=== PATIENT | male | born 1965 | race Hispanic/Latino ===

== ENCOUNTER 2016-11-29 07:41 | Emergency (ER) | payer BC ==
[2016-11-29 07:41] VITALS: BMI 25.5
[2016-11-29 07:53] VITALS: RESP 18; TEMP 97.3
--- NOTE | 2016-11-29 08:33 | ED PDOC ---
Arrival/HPI - General Chief Complaint: Back Pain Time Seen by Provider: 11/29/16 08:11 - History of Present Illness Narrative History of Present Illness (Text): 50yo male, presents with L. sided neck pain radiating to his LUE. Pt states pain is worst with neck movement and feels like paresthesias/pins and needles sensation. Denies any trauma or injury. patient also complaining of retrosternal chest discomfort described as burning since last night. Patient states this feels like his previous indigestion symptoms which were relieved with tums. States he has no discomfort at this time. No other complaints. Denies exertional cp, denies sob or vargas. No other complaints. Past Medical History - Provider Review Nursing Documentation Reviewed: Yes - Infectious Disease Hx of Infectious Diseases: None - Cardiac Hx Hypertension: Yes - Renal Other/Comment: Kidney CA 10yrs ago. - Hematological/Oncological Hx Cancer: Yes (KIDNEY) - Psychiatric Hx Substance Use: No - Surgical History Hx Appendectomy: Yes Other/Comment: Kidney Family/Social History Family/Social History: Unknown Family HX Smoking Status: Never Smoked Hx Alcohol Use: No Hx Substance Use: No Hx Substance Use Treatment: No Allergies/Home Meds Allergies/Adverse Reactions: Allergies No Known Allergies Allergy (Verified 06/14/13 17:03) Physical Exam - Physical Exam Narrative Physical Exam (Text): 11/29/16 08:47 - Review of Systems Constitutional: Normal. absent: Fatigue, Weight Change, Fevers Eyes: Normal ENT: denies sore throat, denies tristhmus Respiratory: Normal. absent: SOB, Cough, Sputum Cardiovascular: Chest pain absent: Palpitations, Syncope Gastrointestinal: Normal. absent: Abdominal Pain, Diarrhea, Nausea, Vomiting Genitourinary: Normal. absent: Dysuria, Frequency, Hematuria Musculoskeletal: Neck pain, paresthesias. absent: Arthralgias, Back Pain Skin: no rashes, no erythema Neurological: absent: Focal Weakness Endocrine: Normal Hemo/Lymphatic: Normal Psychiatric: No suicidal or homicidal ideations Physical exam Patient appears age appropriate in no distress, speaking full sentences without difficulty - Systems Exam Head: Present: Atraumatic, Normocephalic Pupils: Present: PERRL Extroacular Muscles: Present: EOMI Conjunctiva: Present: Normal Mouth: Present: Moist Mucous Membranes Neck: Present: Normal Range of Motion. No: MIDLINE TENDERNESS Respiratory/Chest: Present: Clear to Auscultation, Good Air Exchange. No: Respiratory Distress, Accessory Muscle Use, Tachypneic Cardiovascular: Present: Regular Rate and Rhythm, Normal S1, S2, Peripheal Pulses Present. No: Murmurs Abdomen: Present: Normal Bowel Sounds. No: Tenderness, Distention, Peritoneal Signs, Rebound, Guarding Back: Present: Normal Inspection. No: Midline Tenderness, Paraspinal Tenderness Upper Extremity: Present: Normal Inspection. LUE with full active and passive ROM, distal neurovasc. fully intact. No: Cyanosis, Edema Lower Extremity: Present: Normal Inspection. No: Edema Neurological: Present: GCS=15, Speech Normal, cranial nerves II through XII fully intact with no cerebellar abnormality, neurosensory fully intact. No focal neurological deficits. Skin: Present: Warm, Dry, Normal Color. No: Rashes Lymphatic: Present: OX3, NI, NC Psychiatric: Present: Alert, Oriented x 3, Normal Insight, Normal Concentration Vital Signs Reviewed: Yes Vital Signs Temp Pulse Resp BP Pulse Ox 11/29/16 07:52 97.3 F L 76 18 141/92 H 96 Temperature: Afebrile Blood Pressure: Hypertensive Pulse: Regular Respiratory Rate: Normal Appearance: Positive for: Well-Appearing Pain Distress: None Mental Status: Positive for: Alert and Oriented X 3 Medical Decision Making ED Course and Treatment: 11/29/16 08:29 Impression: 50yo male with L. neck pain and LUE. Also c/o chest discomfort. No acute findings on PE. pt's HEART score low. cardiac enzymes and an EKG ordered I had a long discussion with patient that our initial evaluation does not shown evidence of a heart attack, people in similar risk category may still have a chance of having a major adverse cardiac event. Patient verbalized understanding that even if these tests are normal, symptoms may still be a warning sign of a future heart attack and it is very important for patient to arrange outpatient cardiology follow up Patient was not agreeable to observation in the emergency room for 2 sets of cardiac enzymes, and asked to be discharged home Observation and further evaluation was offered as inpatient, but patient asked to be discharged home with outpatient follow up instead. Differential Diagnosis included but are not limited to: Paresthesias, chest pain Plan: -- Cardiac enzymes, chest x-ray, EKG. -- Reassess and disposition Prior Visits: Notes and results from previous visits were reviewed. Patient last seen in the ED on Progress Notes: EKG shows NSR at [address]-segment elevations, normal intervals. Interpreted by me. Report Date : 11/29/2016 09:35:57 Procedure: Chest xray Dictator : Ac Henry MD IMPRESSION: No active disease. Report Date : 11/29/2016 11:09:30 PROCEDURE: Thoracic Spine Radiographs. Dictator : Ac Henry MD IMPRESSION: Normal radiographs of the thoracic spine. Report Date : 11/29/2016 11:10:58 PROCEDURE: Cervical Spine Radiographs. Dictator : Ac Henry MD IMPRESSION: No acute findings 11/29/16 11:16 C5-C6, C6-C7 disk space narrowing on pt's c-spine xrays, interpreted by radiologist pt in no distress and denies complaints at this time states he feels comfortable being dc'd home with outpatient f/u again, declined further observation and labs in the ER denies cp/abd pain/sob denies neck pain Had a long and extensive d/w patient about f/u with a machinist supervisor outside for further workup and testing as well as a primary physician. Explained to patient that although his ER w/u did not show any acute abnormalities, patient still needs further testing which may include an echo, stress test, cardiac cath, or others. Pt states he understands to return to the ER right away for new or worsening symptoms or for inability to f/u with PMD or specialist as instructed. Patient states that he fully agrees with and understands discharge instructions. States that he agrees with the plan and disposition. Verbalized and repeated discharge instructions and plan. I have given the patient opportunity to ask any additional questions. - Lab Interpretations Lab Results: 11/29/16 08:50 11/29/16 08:50 Lab Results 11/29/16 08:50: PT 10.8, INR 1.00, APTT 28.2 11/29/16 08:50: WBC 7.8, RBC 4.82, Hgb 14.4, Hct 42.2, MCV 87.6, MCH 29.9, MCHC 34.1, RDW 12.4, Plt Count 200, MPV 10.2, Gran % 63.1, Lymph % (Auto) 27.2, [place] % (Auto) 7.5 H, Eos % (Auto) 1.3 L, Baso % (Auto) 0.9, Gran # 4.89, Lymph # 2.1 , [place] # 0.6, Eos # 0.1, Baso # 0.07 11/29/16 08:50: Sodium 139, Potassium 4.2, Chloride 105, Carbon Dioxide 26, Anion Gap 12, BUN 15, Creatinine 0.9, Est GFR ( Amer) > 60, Est GFR (Non- Af Amer) > 60, Random Glucose 95, Calcium 9.5, Total Bilirubin 0.6, AST 27, ALT 34, Alkaline Phosphatase 84, Lactate Dehydrogenase 416, Total Creatine Kinase 108, Troponin I < 0.01, Total Protein 7.4, Albumin 4.2, Globulin 3.2, Albumin/ Globulin Ratio 1.3 - RAD Interpretation Radiology Orders: 11/29/16 08:34 CHEST PORTABLE [RAD] Stat 11/29/16 09:47 CERVICAL SPINE >18YR W/OBLIQUE [RAD] Stat 11/29/16 10:03 DORSAL (THORACIC) SPINE [RAD] Stat - Medication Orders Current Medication Orders: Discontinued Medications Aspirin (Aspirin Chewable) 324 mg PO STAT STA Stop: 11/29/16 08:34 Last Admin: 11/29/16 08:58 Dose: 324 mg Pantoprazole Sodium (Protonix Inj) 40 mg IVP STAT STA Stop: 11/29/16 08:34 Last Admin: 11/29/16 08:58 Dose: 40 mg Disposition/Present on Arrival - Present on Arrival Any Indicators Present on Arrival: No History of DVT/PE: No History of Uncontrolled Diabetes: No Urinary Catheter: No History of Decub. Ulcer: No History Surgical Site Infection Following: None - Disposition Have Diagnosis and Disposition been Completed?: Yes Diagnosis: Chest pain, Paresthesias Disposition: HOME/ ROUTINE Disposition Time: 11:21 Patient Plan: Discharge Patient Problems: Current Active Problems Problem Status Onset Chest pain Acute Paresthesias Acute Condition: GOOD Discharge Instructions (ExitCare): Chest Pain (ED), Paresthesia (ED) Additional Instructions: PLEASE RETURN TO THE EMERGENCY DEPARTMENT FOR NEW OR WORSENING SYMPTOMS. RETURN RIGHT AWAY IF YOU CANNOT FOLLOW UP WITH YOUR PRIMARY CARE DOCTOR, CLINIC, OR SPECIALIST IN 1-2 DAYS. Referrals: PCP,NO [Primary Care Provider] - Follow up with primary Flo Mendosa MD [Staff Provider] - Follow up with primary Gera Pan MD [Staff Provider] - Follow up with primary Lorne Quiñonez MD [Staff Provider] - Follow up with primary Ruddy Alejo MD [Staff Provider] - Follow up with primary Forms: WORK NOTE
[2016-11-29 09:03] LABS: ADD MANUAL DIFF? NO
[2016-11-29 09:10] LABS: BASO # 0.07 K/mm3 (0.0-2.0); BASO % 0.9 % (0.0-3.0); EOS # 0.1 (0.0-0.7); EOS % 1.3 % (1.5-5.0); GRAN # 4.89 (1.4-6.5); GRAN % 63.1 % (50.0-68.0); HEMATOCRIT 42.2 % (42.0-52.0); LYMPH # 2.1 (1.2-3.4); LYMPH % 27.2 % (22.0-35.0); MEAN CELL VOLUME 87.6 fL (80.0-105.0); MEAN CORPUSCULAR HEMOGLOBIN 29.9 pg (25.0-35.0); MEAN CORPUSCULAR HGB CONC 34.1 g/dl (31.0-37.0); MEAN PLATELET VOLUME 10.2 fl (7.0-11.0); MONO # 0.6 (0.1-0.6); MONO % 7.5 % (1.0-6.0); PLATELET COUNT 200 10^3/uL (120.0-450.0); RED CELL DISTRIBUTION WIDTH 12.4 % (11.5-14.5); WHITE BLOOD COUNT 7.8 10^3/ul (4.5-11.0)
[2016-11-29 09:20] LABS: ALB/GLOB RATIO 1.3 (1.1-1.8); ALKALINE PHOSPHATASE 84 U/L (38-133); ALT/SGPT 34 U/L (7-56); AST/SGOT 27 U/L (15-59); BILIRUBIN,TOTAL 0.6 mg/dL (0.2-1.3); BLOOD UREA NITROGEN 15 mg/dL (7-21); CALCIUM 9.5 mg/dL (8.4-10.5); CARBON DIOXIDE 26 mmol/L (21-33); CHLORIDE 105 mmol/L (98-107); GFR AFRICAN-AMERICAN > 60; GLUCOSE,RANDOM 95 mg/dL (70-110); PARTIAL THROMBOPLASTIN TIME 28.2 Seconds (23.7-30.8); POTASSIUM 4.2 mmol/L (3.6-5.0); SODIUM 139 mmol/L (132-148); TOTAL PROTEIN 7.4 g/dL (5.8-8.3)
[2016-11-29 09:37] LABS: TROPONIN I < 0.01 ng/mL
--- NOTE | 2016-11-29 09:37 | RAD ---
HISTORY: cp COMPARISON: 06/14/2013 FINDINGS: LUNGS: No active pulmonary disease. PLEURA: No significant pleural effusion identified, no pneumothorax apparent. CARDIOVASCULAR: Normal. OSSEOUS STRUCTURES: No significant abnormalities. VISUALIZED UPPER ABDOMEN: Normal. OTHER FINDINGS: None. IMPRESSION: No active disease.
--- NOTE | 2016-11-29 11:11 | RAD ---
HISTORY: PAIN BETWEEN SHOULDER BLADES COMPARISON: No prior. FINDINGS: BONES: Alignment maintained. No fracture. DISC SPACES: Normal. SOFT TISSUES: Normal. OTHER FINDINGS: None. IMPRESSION: Normal radiographs of the thoracic spine.
--- NOTE | 2016-11-29 11:13 | RAD ---
PROCEDURE: Cervical Spine Radiographs. HISTORY: Pain. COMPARISON: None. FINDINGS: BONES: Alignment maintained. No fracture. Dens Intact. DISC SPACES: There is mild disc space narrowing at C5-6 and C6-7 SOFT TISSUES: Normal. No prevertebral soft tissue swelling. OTHER FINDINGS: None. IMPRESSION: No acute findings
[2016-11-29 11:49] VITALS: BP 143/82; PULSE 68; O2SAT 99
--- NOTE | 2016-11-29 14:58 | CARD ---
APPROVED REPORT EKG Measurement Heart [id number] [id number] <Conclusion> Normal sinus rhythm Normal ECG
== END 2016-11-29 11:50 | disposition home or self-care (01) ==
LOC: ED 07:41
DX: R07.9 Chest pain, unspecified (principal); R20.9 Unspecified disturbances of skin sensation
CPT/HCPCS: 71010; 72050; 72070; 80053; 82550; 83615; 84484; 85025; 85610; 85730; 93005; 96374; 99283; C9113

== ENCOUNTER 2017-03-07 10:22 | Emergency (ER) | payer BC ==
[2017-03-07 10:28] VITALS: BMI 26.1
[2017-03-07 10:32] VITALS: RESP 18; O2SAT 100
--- NOTE | 2017-03-07 11:00 | ED PDOC ---
Arrival/HPI - General Chief Complaint: Dizziness/Lightheaded Time Seen by Provider: 03/07/17 10:41 Historian: Patient, Parent - History of Present Illness Narrative History of Present Illness (Text): 03/07/17 10:50 Maurisio Gillespie is a 51 year old male, whose past medical history includes hypertension and hypercholesterolemia, who presents to the emergency department complaining of dizziness since this morning. Patient reports he went to sleep fine and woke up this morning feeling extremely dizzy with blurry vision and nausea. Dizziness worsens when he moves his head to any direction or moves from laying to sitting. Patient denies taking any medication. He notes having a tingling sensation in both hands and "metal taste" in his mouth for a couple of weeks. Patient denies fever, headache, shortness of breath, chest pain, abdominal pain, vomiting, dysuria, or other complaints. PMD: None Time/Duration: 1-3 hours Symptom Onset: Sudden Symptom Course: Unchanged Activities at Onset: Rest Modifying Factors (Text): dizziness is worse with movement Context: Home Associated Symptoms (Text): nausea, blurry vision, paresthesia Past Medical History - Provider Review Nursing Documentation Reviewed: Yes - Infectious Disease Hx of Infectious Diseases: None - Cardiac Hx Cardiac Disorders: Yes Hx Hypertension: Yes - Pulmonary Hx Respiratory Disorders: No - Neurological Hx Neurological Disorder: Yes Hx Dizziness: Yes - HEENT Hx HEENT Disorder: No - Renal Hx Renal Disorder: Yes Other/Comment: Kidney CA 10yrs ago. has only 1 1/2 kidneys, half of R removed. - Endocrine/Metabolic Hx Endocrine Disorders: No - Hematological/Oncological Hx Blood Disorders: Yes Hx Cancer: Yes (KIDNEY) - Integumentary Hx Dermatological Disorder: No - Musculoskeletal/Rheumatological Hx Musculoskeletal Disorders: No - Gastrointestinal Hx Gastrointestinal Disorders: No - Genitourinary/Gynecological Hx Genitourinary Disorders: No - Psychiatric Hx Psychophysiologic Disorder: No Hx Substance Use: No - Surgical History Hx Appendectomy: Yes Other/Comment: 1/2 of R kidney removed due to cancer - Anesthesia Hx Anesthesia: Yes Hx Anesthesia Reactions: No Family/Social History - Physician Review Nursing Documentation Reviewed: Yes Family/Social History: Unknown Family HX Smoking Status: Never Smoked Hx Alcohol Use: No Hx Substance Use: No Hx Substance Use Treatment: No Allergies/Home Meds Allergies/Adverse Reactions: Allergies No Known Allergies Allergy (Verified 03/07/17 10:28) Home Medications: Home Meds Medication Instructions Recorded Confirmed No Known Home Med 03/07/17 03/07/17 Review of Systems - Review of Systems Constitutional: absent: Fevers Eyes: Vision Changes (blurry vision) Cardiovascular: absent: Chest Pain Gastrointestinal: Nausea. absent: Abdominal Pain Neurological: Dizziness, Other (paresthesia). absent: Headache Physical Exam Vital Signs Reviewed: Yes Vital Signs Pulse Resp BP Pulse Ox 03/07/17 10:31 77 18 141/83 100 Blood Pressure: Normal Pulse: Regular Respiratory Rate: Normal Appearance: Positive for: Well-Appearing, Non-Toxic, Comfortable Pain Distress: None Mental Status: Positive for: Alert and Oriented X 3 Finger Stick Blood Glucose: 113 - Systems Exam Head: Present: Atraumatic, Normocephalic Pupils: Present: PERRL Extroacular Muscles: Present: EOMI Conjunctiva: Present: Normal Ears: Present: Normal, NORMAL TM Mouth: Present: Moist Mucous Membranes Neck: Present: Normal Range of Motion Respiratory/Chest: Present: Clear to Auscultation, Good Air Exchange. No: Respiratory Distress, Accessory Muscle Use Cardiovascular: Present: Regular Rate and Rhythm, Normal S1, S2. No: Murmurs Abdomen: Present: Normal Bowel Sounds. No: Tenderness, Distention, Peritoneal Signs Upper Extremity: Present: Normal Inspection. No: Cyanosis, Edema Lower Extremity: Present: Normal Inspection. No: Edema Neurological: Present: GCS=15, CN II-XII Intact, Speech Normal Skin: Present: Warm, Dry, Normal Color. No: Rashes Psychiatric: Present: Alert, Oriented x 3, Normal Insight, Normal Concentration Medical Decision Making ED Course and Treatment: 03/07/17 Impression: 51 year old male with dizziness since this morning. NIH score is 0. Differential Diagnosis included but are not limited to: benign positional vertigo vs. CVA Plan: -- EKG -- Chest X-ray -- CT head without contrast -- Labs -- Antivert and Zofran -- Reassess and disposition Progress Notes: 03/07/17 12:15 Patient continued to be dizzy. Meclizine just given. Signed out to Dr. Mcknight to reevaluate and disposition. - Lab Interpretations Lab Results: 03/07/17 11:01 03/07/17 11:01 Lab Results 03/07/17 11:52: Blood Type Confirm O POSITIVE 03/07/17 11:05: Blood Type O POSITIVE, Antibody Screen Negative, BBK History Checked No verified bt 03/07/17 11:01: Sodium 139, Potassium 3.7, Chloride 104, Carbon Dioxide 20 L, Anion Gap 19, BUN 18, Creatinine 0.9, Est GFR ( Amer) > 60, Est GFR (Non- Af Amer) > 60, Random Glucose 134 H, Calcium 9.4, Total Bilirubin 0.8, AST 26, ALT 33, Alkaline Phosphatase 97, Troponin I < 0.01, Total Protein 7.7, Albumin 4.6, Globulin 3.1, Albumin/Globulin Ratio 1.5, Triglycerides 170 H, Cholesterol 227 H, LDL Cholesterol Direct 161 H, HDL Cholesterol 43 03/07/17 11:01: PT 10.8, INR 1.00, APTT 26.2 03/07/17 11:01: WBC 7.4, RBC 5.01, Hgb 15.2, Hct 43.2, MCV 86.2, MCH 30.3, MCHC 35.2, RDW 12.4, Plt Count 196, MPV 10.3, Gran % 73.3 H, Lymph % (Auto) 20.6 L, [place] % (Auto) 5.1, Eos % (Auto) 0.5 L, Baso % (Auto) 0.5, Gran # 5.42, Lymph # 1.5, [place] # 0.4, Eos # 0.0, Baso # 0.04 I have reviewed the lab results: Yes - RAD Interpretation Radiology Orders: 03/07/17 10:52 CHEST PORTABLE [RAD] Stat 03/07/17 10:53 HEAD W/O CONTRAST [CT] Stat - EKG Interpretation Interpreted by ED Physician: Yes Type: 12 lead EKG - Medication Orders Current Medication Orders: Sodium Chloride (Sodium Chloride 0.9%) 1,000 mls @ 999 mls/hr IV .Q1H1M STA Stop: 03/07/17 13:31 Last Admin: 03/07/17 12:40 Dose: 999 mls/hr Discontinued Medications Meclizine HCl (Antivert) 25 mg PO STAT STA Stop: 03/07/17 10:55 Last Admin: 03/07/17 10:59 Dose: 25 mg Metoclopramide HCl (Reglan) 10 mg IVP STAT STA Stop: 03/07/17 12:32 Last Admin: 03/07/17 12:40 Dose: 10 mg Ondansetron HCl (Zofran Inj) 4 mg IVP STAT STA Stop: 03/07/17 10:55 Last Admin: 03/07/17 10:58 Dose: 4 mg NIHSS Scale ([place]) Time Performed: 10:50 - How Severe is the Stoke Baseline Level of Consciousness: 0=Alert LOC to Questions: 0=Both comments correct LOC to commands: 0=Obeys both correctly Best Gaze: 0=Normal Visual: 0=No visual loss Facial: 0=Normal Motor Arm - Left: 0=No drift Motor Arm - Right: 0=No drift Motor Leg - Left: 0=No drift Motor Leg - Right: 0=No drift Limb Ataxia: 0=Absent Sensory: 0=Normal Best Language: 0=No aphasia Dysarthia: 0=Normal articulation Extinction & Inattention (Neglect): 0=Normal, no object Score: 0 Risk Level: No Stroke Risk rTPA Inclusion/Exclusion - Refusal of Treatment Patient Refused Treatment: No - Inclusion Criteria for Altepase Patient is 18 years or Older: No The Clinical Diagnosis of Ischemic Stroke That is Causing a Potentially Disabling Neurological Deficit: No Time of Onset is Well Established to be Less Than 270 Minute Before Treatment Would Begin: No Risk/Benefit Discussed With Patient/Family Member Present: No - Exclusion Criteria for Altepase Uncontrolled Hypertension at Time of Treatment (Systolic BP above 185 or Diastolic BP above 110 mmHg): No Less Than 3 Months Had a Recent: Intracranial (NO history of incranial event. ) Active Internal Bleeding: No Known Bleeding Diathesis Including but Not Limited to: Platelets Below 100,000/ mm,PTT Above 40 sec After Heparin Use, Current Use of Oral Anitcoagulant With INR Greater Than 1.7 or PT Greater Than 15 secs: No Evidence of an Intracranial Hemorrhage: No Evidence of Major Acute Infarct With Signs Greater Than 1/3 MCA Territory: No Suspicion of Subarachnoid Hemorrhage on Pretreatment Evaluation Even if CT Head Negative For Hemorrhage: No - Scribe Statement The provider has reviewed the documentation as recorded by the Brittaney Smiley Provider Scribe Attestation: All medical record entries made by the Brittaney were at my direction and personally dictated by me. I have reviewed the chart and agree that the record accurately reflects my personal performance of the history, physical exam, medical decision making, and the department course for this patient. I have also personally directed, reviewed, and agree with the discharge instructions and disposition. Disposition/Present on Arrival - Present on Arrival Any Indicators Present on Arrival: No History of DVT/PE: No History of Uncontrolled Diabetes: No Urinary Catheter: No History of Decub. Ulcer: No History Surgical Site Infection Following: None - Disposition Have Diagnosis and Disposition been Completed?: No Diagnosis: Vertigo Disposition Time: 12:15 Patient Problems: Current Active Problems Problem Status Onset Vertigo Acute Condition: FAIR Forms: [facility] (Indian)
[2017-03-07 11:07] LABS: BASO # 0.04 K/mm3 (0.0-2.0); BASO % 0.5 % (0.0-3.0); EOS % 0.5 % (1.5-5.0); GRAN # 5.42 (1.4-6.5); GRAN % 73.3 % (50.0-68.0); HEMATOCRIT 43.2 % (42.0-52.0); LYMPH # 1.5 (1.2-3.4); LYMPH % 20.6 % (22.0-35.0); MEAN CELL VOLUME 86.2 fl (80.0-105.0); MEAN CORPUSCULAR HEMOGLOBIN 30.3 pg (25.0-35.0); MEAN CORPUSCULAR HGB CONC 35.2 g/dl (31.0-37.0); MEAN PLATELET VOLUME 10.3 fl (7.0-11.0); MONO # 0.4 (0.1-0.6); MONO % 5.1 % (1.0-6.0); RED CELL DISTRIBUTION WIDTH 12.4 % (11.5-14.5); WHITE BLOOD COUNT 7.4 10^3/ul (4.5-11.0)
[2017-03-07 11:17] LABS: ALB/GLOB RATIO 1.5 (1.1-1.8); ALKALINE PHOSPHATASE 97 U/L (38-126); ALT/SGPT 33 U/L (7-56); AST/SGOT 26 U/L (17-59); BILIRUBIN,TOTAL 0.8 mg/dL (0.2-1.3); BLOOD UREA NITROGEN 18 mg/dL (7-21); CALCIUM 9.4 mg/dL (8.4-10.5); CARBON DIOXIDE 20 mmol/L (21-33); CHLORIDE 104 mmol/L (98-107); CHOLESTEROL 227 mg/dL (130-200); GFR AFRICAN-AMERICAN > 60; GLUCOSE,RANDOM 134 mg/dL (70-110); POTASSIUM 3.7 mmol/L (3.6-5.0); SODIUM 139 mmol/L (132-148); TOTAL PROTEIN 7.7 g/dL (5.8-8.3)
[2017-03-07 11:18] LABS: PARTIAL THROMBOPLASTIN TIME 26.2 Seconds (23.7-30.8)
[2017-03-07 11:35] LABS: TROPONIN I < 0.01 ng/mL
--- NOTE | 2017-03-07 11:50 | CT ---
PROCEDURE: CT HEAD WITHOUT CONTRAST. HISTORY: dizziness r/o CVA COMPARISON: None available. TECHNIQUE: Axial computed tomography images were obtained through the head/brain without intravenous contrast. Radiation dose: Total exam DLP = 801.52 mGy-cm. This CT exam was performed using one or more of the following dose reduction techniques: Automated exposure control, adjustment of the mA and/or kV according to patient size, and/or use of iterative reconstruction technique. FINDINGS: HEMORRHAGE: No intracranial hemorrhage. BRAIN: Galvez-white matter differentiation is preserved. There is no mass, mass effect or abnormal extra-axial fluid collection. VENTRICLES: The ventricles are normal in size, shape and configuration. CALVARIUM: The skull base and calvarium are normal. PARANASAL SINUSES: There are small retention cysts/ polyps in the left maxillary sinus. The remaining included paranasal sinuses are predominantly clear. MASTOID AIR CELLS: Predominantly clear. OTHER FINDINGS: None. IMPRESSION: No acute intracranial abnormality.
[2017-03-07] MEDS ORDERED: Sodium Chloride 0.9% 1,000 ML IV STA (12:31)
[2017-03-07 12:51] VITALS: TEMP 97.9
[2017-03-07 15:38] VITALS: BP 148/73; PULSE 78
--- NOTE | 2017-03-07 20:52 | CARD ---
APPROVED REPORT EKG Measurement Heart [id number] [id number] <Conclusion> Normal sinus rhythm Normal ECG
== END 2017-03-07 15:33 | disposition home or self-care (01) ==
LOC: ED 10:22
DX: R42 Dizziness and giddiness (principal); I10 Essential (primary) hypertension; E78.00 Pure hypercholesterolemia, unspecified
CPT/HCPCS: 70450; 80053; 80061; 82948; 83036; 84484; 85025; 85610; 85730; 86850; 86900; 93005; 96374; 96375; 99285; J2405; J2765; J7040